=== PATIENT | male | born 1945 | race African-American/Black ===

== ENCOUNTER 2020-10-08 17:52 | Emergency (ER) | payer OTHER ==
[~2020-10-08] VITALS: Ht 175.3 cm; Wt 71.7 kg
[2020-10-08] MEDS ORDERED: LIPITOR 20 MG T20 M1 PO (17:57)
[2020-10-08] MEDS ORDERED: EQ LUBRICATING15 ML EA. EYE (17:58)
[2020-10-08] MEDS ORDERED: GLUCOPHAGE1000 MG PO (17:58)
[2020-10-08] MEDS ORDERED: COZAAR 25 MG TA25 M2 PO (17:58)
[2020-10-08] MEDS ORDERED: LEVEMIR100 UNIT/1 SUBQ (17:59)
[2020-10-08] MEDS ORDERED: [UNRECOGNIZED DRUG - OTHER] PO (17:59)
[2020-10-08] MEDS ORDERED: ASA81BEC PO (17:59)
[2020-10-08] MEDS ORDERED: ALOGLIPTIN25 MG PO (18:00)
[2020-10-08 18:57] LABS: BASOPHILS 1.8 % (0.0-2.0); EOSINOPHILS 4.5 % (0.0-3.0); HEMATOCRIT 34.1 % (42.0-52.0); LYMPHOCYTES 26.7 % (24.0-44.0); MCH 27.4 pg (26.0-34.0); MCHC 32.1 g/dL (28.0-37.0); MCV 85.3 fL (80.0-100.0); MONOCYTES 7.6 % (1.0-8.0); PLATELET COUNT 228 thou/uL (150-400); POLYS 59.4 % (36.0-66.0); RDW 16.5 % (10.5-14.5); WBC 8.3 thou/uL (4.0-11.0)
[2020-10-08 19:08] LABS: CALCIUM 8.9 mg/dL (8.5-10.1); POTASSIUM 4.2 mmol/L (3.5-5.1)
[2020-10-08 19:14] LABS: ALBUMIN 2.8 g/dL (3.4-5.0); DIRECT BILIRUBIN 0.1 mg/dL (<0.1-0.2); MAGNESIUM 1.4 mg/dL (1.8-2.4); TOTAL BILIRUBIN 0.4 mg/dL (0.2-1.0); TOTAL PROTEIN 6.9 g/dL (6.4-8.2)
[2020-10-08 20:34] LABS: URINE BILIRUBIN NEGATIVE (Negative); URINE BLOOD 2+ (Negative); URINE CLARITY CLEAR; URINE COLOR YELLOW; URINE GLUCOSE-RANDOM* NEGATIVE (Negative); URINE KETONES NEGATIVE (Negative); URINE LEUKOCYTES-REFLEX TRACE (Negative); URINE PROTEIN (DIPSTICK) NEGATIVE (Negative); URINE SPECIFIC GRAVITY >= 1.030 (1.005-1.035)
[2020-10-08 20:41] LABS: URINE NITRITE-REFLEX POSITIVE (Negative)
[2020-10-08 21:07] LABS: URINE WBC-REFLEX 6-15 Few /HPF (0-5)
[2020-10-08 21:08] LABS: CASTS None Seen /LPF (None Seen); SQUAMOUS 0-3 Few /LPF (0-3)
[2020-10-08 21:09] LABS: BACTERIA-REFLEX >30 Many /HPF (None Seen); URINE RBC 3-10 Few /HPF (NONE SEEN)
[2020-10-08 21:10] LABS: CRYSTALS None Seen /LPF (None Seen)
[2020-10-08] MEDS ORDERED: CEPHALEXIN500 MG PO (21:26)
[2020-10-08 22:41] VITALS: BP 110/71
== END 2020-10-08 22:41 | disposition home or self-care (01) ==
LOC: ER 17:52
PROVIDERS: Emergency Medicine
DX: S46.812A Strain of other muscles, fascia and tendons at shoulder and upper arm level, left arm, initial encounter (principal); N39.0 Urinary tract infection, site not specified; E78.5 Hyperlipidemia, unspecified; I10 Essential (primary) hypertension; E11.9 Type 2 diabetes mellitus without complications; Z79.82 Long term (current) use of aspirin; Z79.899 Other long term (current) drug therapy; X50.1XXA Overexertion from prolonged static or awkward postures, initial encounter; Y93.89 Activity, other specified; Y92.89 Other specified places as the place of occurrence of the external cause; Y99.9 Unspecified external cause status